=== PATIENT | female | born 1935 | race Caucasian/White ===

== ENCOUNTER 2017-07-21 10:00 | Emergency (ER) | payer MEDICARE ==
[~2017-07-21] VITALS: Ht 157.5 cm; Wt 70.3 kg
[~2017-07-21 10:00] MED LIST: AMBIEN10 MG PO; ASPIRIN EC325 MG PO; DICLOFENAC SODI75 MG PO; FLONASE2 SPRAY NAS; FLUOXETINE HCL20 M1 PO; HYDROCODON-ACE1 EAC8 PO; METOPROLOL TART25 MG PO; NORCO 5-325 TA1 EACH PO; OMEPRAZOLE20 MG PO; SIMVASTATIN20 MG PO
--- NOTE | 2017-07-22 13:21 | EKG ---
[facility] [address] [facility] [place] [address] Signed Normal sinus rhythm Possible Left atrial enlargement Nonspecific ST and T wave abnormality Abnormal ECG No previous ECGs available Confirmed by CHING MAR MD ([id number] on 07/22/2017 1:21:01 PM Electronically Signed By: CHING MAR MD 07/22/17 1321 PATIENT NAME: ARTIE JONES Electrocardiogram DATE OF : 35 PHYSICIAN: CHING MAR MD REPORT #: [id number] REPORT IS CONFIDENTIAL AND NOT TO BE RELEASED WITHOUT AUTHORIZATION
== END 2017-07-21 15:03 | disposition home or self-care (01) ==
LOC: ED 10:00
DX: G45.9 Transient cerebral ischemic attack, unspecified (principal); I10 Essential (primary) hypertension; Z79.899 Other long term (current) drug therapy; Z79.82 Long term (current) use of aspirin
CPT/HCPCS: 36415; 70450; 71046; 80053; 81001; 84484; 85025; 93005; 93010; 99284

== ENCOUNTER 2018-09-28 09:45 | Emergency (ER) | payer MEDICARE ==
[~2018-09-28] VITALS: Ht 157.5 cm; Wt 70.3 kg
[2018-09-28] MEDS ORDERED: ATORVASTATIN CA40 MG PO (10:00)
[2018-09-28] MEDS ORDERED: NORCO 5-325 TA1 EACH PO (10:08)
[2018-09-28] MEDS ORDERED: MOBIC7.5 MG PO (10:08)
[2018-09-28] MEDS ORDERED: CYCLOBENZAPRINE5 MG PO (10:08)
[2018-09-28] MEDS ORDERED: MEDROL4 MG PO (10:08)
== END 2018-09-28 11:10 | disposition home or self-care (01) ==
LOC: ED 09:45
DX: M47.26 Other spondylosis with radiculopathy, lumbar region (principal); M16.12 Unilateral primary osteoarthritis, left hip; I10 Essential (primary) hypertension; F32.9 Major depressive disorder, single episode, unspecified; F41.9 Anxiety disorder, unspecified; Z79.899 Other long term (current) drug therapy; Z90.710 Acquired absence of both cervix and uterus
CPT/HCPCS: 72100; 72170; 99283; J7512

== ENCOUNTER 2022-03-17 10:38 | Emergency (ER) | payer MEDICARE ==
[~2022-03-17] VITALS: Ht 157.5 cm; Wt 70.3 kg
[~2022-03-17 10:38] MED LIST changes: +ATORVASTATIN CA40 MG PO; +CYCLOBENZAPRINE5 MG PO; +MEDROL4 MG PO; +MOBIC7.5 MG PO
== END 2022-03-17 14:23 | disposition home or self-care (01) ==
LOC: ED 10:38
DX: R10.9 Unspecified abdominal pain (principal); I10 Essential (primary) hypertension; Z79.899 Other long term (current) drug therapy
CPT/HCPCS: 36415; 74177; 80053; 83690; 85025; 99284-25; J7040; Q9967

== ENCOUNTER 2024-06-11 12:16 | Emergency (ER) | payer MEDICARE ==
[~2024-06-11] VITALS: Ht 157.5 cm; Wt 66.7 kg
[2024-06-11] MEDS ORDERED: AMLODIPINE BES2.5 MG (12:26)
[2024-06-11 12:50] LABS: BASOPHILS 0.2 % (0-2); HEMATOCRIT 45.7 % (35.0-50.0); HEMOGLOBIN 15.5 g/dL (12.0-18.0); LYMPHOCYTES 4.2 % (24-44); MCH 32.4 (27-36); MCHC 33.8 g/dl (30-36); MCV 95.8 fl (81-99); MONOCYTES 6.6 % (0-12); PLATELET COUNT 331 K/uL (140-440); RBC 4.77 M/ul (4.3-5.7); RDW 13.2 (10.5-15.0)
[2024-06-11 13:06] LABS: ALBUMIN 4.1 g/dL (3.4-5.0); ALBUMIN/GLOBULIN RATIO 0.91 (1.1-2.4); ANION GAP 19.7 (7-21); BILIRUBIN, TOTAL 1.1 ng/dL (0.2-1.0); BUN/CREATININE RATIO 19.04 (6.0-28.6); CALCIUM 10.1 mg/dL (8.5-10.1); CREATININE, SERUM 0.63 mg/dL (0.55-1.02); POTASSIUM 4.7 mmol/L (3.5-5.1); PROTEIN, TOTAL 8.6 g/dL (6.4-8.2); TSH, 3RD GENERATION 1.401 uIU/mL (0.358-3.740)
[2024-06-11 13:32] LABS: BILIRUBIN, URINE NEGATIVE (negative); BLOOD/HGB, URINE MODERATE (Negative); KETONE, URINE TRACE (Negative); LEUK ESTERASE, URINE NEGATIVE (negative); NITRITE, URINE NEGATIVE (negative)
[2024-06-11 13:42] LABS: BACTERIA, URINE NONE SEEN /hpf (negative); CASTS, URINE NONE SEEN \\lpf; COLLECTION TYPE, URINE CLEAN CATCH; CRYSTALS, URINE NONE SEEN (0-1+); EPITHELIAL CELLS, URINE 0 /lpf (0-1+); REFLEX CULTURE, URINE No (No)
[2024-06-11 15:05] VITALS: BP 119/58
--- NOTE | 2024-06-11 22:18 | EKG ---
[facility] [address] [facility] [place] [address] Signed Normal sinus rhythm Normal ECG When compared with ECG of 21-JUL-2017 10:09, Nonspecific T wave abnormality, improved in Anterior leads Confirmed by Tammy Wynn MD () on 06/11/2024 10:17:51 PM Electronically Signed By: TAMMY WYNN MD 06/11/24 2218 PATIENT NAME: ROBERTARTIE RENÉ Electrocardiogram DATE OF : 35 PHYSICIAN: TAMMY WYNN MD REPORT #: [id number] REPORT IS CONFIDENTIAL AND NOT TO BE RELEASED WITHOUT AUTHORIZATION
== END 2024-06-11 15:37 | disposition short-term general hospital (02) ==
LOC: ED 12:16
PROVIDERS: Emergency Medicine
DX: S72.002A Fracture of unspecified part of neck of left femur, initial encounter for closed fracture (principal); W19.XXXA Unspecified fall, initial encounter; I10 Essential (primary) hypertension; Z79.899 Other long term (current) drug therapy
CPT/HCPCS: 36415; 51701; 71045; 72100; 73502; 80053; 81001; 84443; 84484; 85025; 93005; 93010; 99285-25